=== PATIENT | female | born 1995 | race Caucasian/White ===

== ENCOUNTER 2023-01-31 09:26 | Outpatient (REF) | payer OTHER, SELFPAY ==
--- NOTE | 2023-01-31 08:30 | PAPFT_PTH ---
PATIENT: Luz White LOC: [facility] U#:[id number] AGE/SX: 27/F ROOM: RE01/31/[address]: Jennifer Jackson NP : 1995 BED: DIS: 01/31/2023 SPEC #: [id number] RECD: 01/31/23 12:48 STATUS: CARLOS ALBERTO GARCIA #: [id number] AIDA: 01/31/23 08:[address]: Jennifer Jackson NP DEPT: [facility] Cytology RECD BY: Debbie Carreon Tissues: 1 - CX/ENDOCX FOR PAP SMEARS Procedures: PAP THIN PREP/[facility] Screening Comments: [id number]
== END 2023-01-31 09:27 | disposition home or self-care (01) ==
LOC: LBN 09:26
PROVIDERS: Visit Provider Nurse Practitioner Women's Health
DX: Z12.4 Encounter for screening for malignant neoplasm of cervix (principal)
CPT/HCPCS: 88142

== ENCOUNTER 2024-10-01 16:08 | Outpatient (CLI) | payer OTHER, SELFPAY ==
[2024-10-01 17:21] LABS: HCG Quant, Pregnancy 13219 mIU/mL (1-3)
== END 2024-10-01 16:09 | disposition home or self-care (01) ==
LOC: LBO 16:09
PROVIDERS: Visit Provider Advanced Practice Midwife
DX: Z34.91 Encounter for supervision of normal pregnancy, unspecified, first trimester (principal); N92.6 Irregular menstruation, unspecified
CPT/HCPCS: 36415; 86850; 86900; 86901; 84702

== ENCOUNTER 2024-10-03 15:00 | Outpatient (CLI) | payer OTHER, SELFPAY ==
[2024-10-03 14:47] LABS: HCG Quant, Pregnancy 13754 mIU/mL (1-3)
== END 2024-10-03 15:01 | disposition home or self-care (01) ==
LOC: LBO 15:01
PROVIDERS: Visit Provider Advanced Practice Midwife
DX: N92.6 Irregular menstruation, unspecified (principal)
CPT/HCPCS: 36415; 84702

== ENCOUNTER 2024-10-22 02:21 | Outpatient (CLI) | payer OTHER, SELFPAY ==
[2024-10-22 14:51] LABS: HCG Quant, Pregnancy 17 mIU/mL (1-3)
== END 2024-10-22 02:22 | disposition home or self-care (01) ==
LOC: LBO 02:21
PROVIDERS: Visit Provider Obstetrics & Gynecology Gynecology
DX: O03.9 Complete or unspecified spontaneous abortion without complication (principal)
CPT/HCPCS: 36415; 84702

== ENCOUNTER 2025-05-26 17:53 | Outpatient (REF) | payer OTHER, SELFPAY | END 2025-05-26 17:54 | disposition home or self-care (01) | LOC: LBN 17:53 | PROVIDERS: Visit Provider Obstetrics & Gynecology | DX: R30.0 Dysuria (principal) | CPT/HCPCS: 87086 ==

== ENCOUNTER 2025-07-06 03:40 | Outpatient (CLI) | payer OTHER, SELFPAY ==
[2025-07-06 17:11] LABS: Abs Immature Grans 0.03 10^3/uL (0.0-0.06); HCT 35.9 % (36.0-46.0); HGB 12.1 g/dL (11.2-15.7); Immature Grans % 0.3 %; MCH 29.7 pg (27.0-33.0); MCHC 33.7 % (32.0-36.0); MCV 88 fL (80-95); MPV 10.4 fL (8.0-11.0); Platelet Count 237 10^3/uL (130-400); RBC 4.08 10^6/uL (3.93-5.22); RDW 12.9 % (11.7-14.6); RDW-SD 41.5 fL; WBC 9.20 10^3/uL (4.4-10.8)
[2025-07-07 19:27] LABS: Hepatitis C Ab w Rflx HCV PCR Negative (Negative)
[2025-07-07 19:32] LABS: HIV-1/2 Ag & Ab Screen Negative (Negative)
[2025-07-08 10:59] LABS: Rubella IgG Ab (UVM) Positive (See Note)
[2025-07-09 13:23] LABS: Syphilis IgG w/Reflex Nonreactive (Nonreactive)
== END 2025-07-06 03:41 | disposition home or self-care (01) ==
LOC: LBO 03:40
PROVIDERS: Visit Provider Advanced Practice Midwife
DX: Z34.91 Encounter for supervision of normal pregnancy, unspecified, first trimester (principal)
CPT/HCPCS: 36415; 86787; 86803; 86850; 86900; 86901; 87340; 87389; 85025; 86762; 86780

== ENCOUNTER 2025-07-06 15:05 | Outpatient (REF) | payer OTHER, SELFPAY ==
[2025-07-06 19:20] LABS: Cannabinoids THC Negative (Negative)
[2025-07-08 12:12] LABS: Fentanyl Scr w/Rfx Confirm Negative ng/mL (<1)
== END 2025-07-06 15:06 | disposition home or self-care (01) ==
LOC: LBN 15:05
PROVIDERS: Visit Provider Advanced Practice Midwife
DX: Z34.91 Encounter for supervision of normal pregnancy, unspecified, first trimester (principal)
CPT/HCPCS: 80307; 80348; 87086

== ENCOUNTER 2025-08-05 18:42 | Outpatient (REF) | payer OTHER, SELFPAY ==
[2025-08-07 12:45] LABS: Chlamydia Result Negative (Negative); GC Result Negative (Negative)
== END 2025-08-05 18:43 | disposition home or self-care (01) ==
LOC: LBN 18:42
PROVIDERS: Visit Provider Advanced Practice Midwife
DX: Z34.91 Encounter for supervision of normal pregnancy, unspecified, first trimester (principal)
CPT/HCPCS: 87491; 87591